=== PATIENT | female | born 1935 | race Caucasian/White ===

== ENCOUNTER 2016-12-06 07:27 | Inpatient (IN) | payer MEDICARE, OTHER ==
[2016-12-06] MEDS ORDERED: NS 0.9% 1000 ML* 1,000 ML IV SCH ×2 (07:45→11:42)
--- NOTE | 2016-12-06 08:04 | RAD ---
INDICATION: Altered mental status COMPARISON: Chest x-ray December 11, 2013 TECHNIQUE: An AP portable view obtained at 0740 hours is submitted. FINDINGS: Bones/Soft Tissues: There are no acute bony findings. Cardiomediastinal: The cardiomediastinal silhouette is normal. Lungs: There are no infiltrates. Pleura: There are no pleural effusions. Other: None IMPRESSION: NO ACTIVE DISEASE.
[2016-12-06 08:16] LABS: Hematocrit 39 % (35-47); Hemoglobin 12.7 g/dl (12.0-16.0); Mean Corpuscular HGB Conc 33 g/dl (31-36); Mean Corpuscular Hemoglobin 29 pg (27-31); Mean Corpuscular Volume 90 fL (80-97); Mean Platelet Volume 9 um3 (7.4-10.4); Red Blood Count 4.33 10^6/ul (4.0-5.4); Red Cell Distribution Width 16 % (10.5-15); White Blood Count 6.6 10^3/ul (3.5-10.8)
[2016-12-06 08:30] LABS: Albumin 3.7 g/dL (3.2-5.2); BUN/Creatinine Ratio 24.1 (8-20); C Reactive Protein 2.48 mg/L (< 5.00); Calcium 9.4 mg/dL (8.6-10.3); EGFR African American 85.3 (>60); EGFR Non-African American 66.3 (>60); Globulin 2.9 g/dL (2-4); Magnesium 1.9 mg/dL (1.9-2.7); Potassium 4.2 mmol/L (3.5-5.0); Total Bilirubin 0.6 mg/dL (0.2-1.0); Total Protein 6.6 g/dL (6.4-8.9); Troponin I 0.01 ng/mL (<0.04)
[2016-12-06 09:02] LABS: TSH (Thyroid Stimulating Horm) 1.71 mcIU/mL (0.34-5.60)
--- NOTE | 2016-12-06 09:22 | RAD ---
INDICATION: Left-sided weakness. Possible TIA COMPARISON: None TECHNIQUE: Noncontrast axial source images were acquired from the skull base to the vertex. FINDINGS: Ventricles/sulci: There is cortical atrophy with compensatory dilatation of the CSF spaces. Brain parenchyma: There is periventricular and subcortical white matter change compatible with chronic ischemia. Intracranial hemorrhage:None. Extra-axial spaces: There are no abnormal extra axial fluid collections or evidence of extra-axial mass. Calvarium: There is no calvarial fracture or other calvarial abnormality. Scalp: There is no evidence of scalp or extracalvarial soft tissue abnormality. Paranasal sinuses/mastoid: The paranasal sinuses and mastoid air cells are clear. Other: None. IMPRESSION: CORTICAL ATROPHY WITH CHRONIC MICROVASCULAR ISCHEMIC CHANGES. NO ACUTE FINDINGS.
[2016-12-06 09:30] LABS: Urine Bacteria 1+ (Absent); Urine Bilirubin Negative (Negative); Urine Glucose Negative (Negative); Urine Nitrite Positive (Negative)
[2016-12-06] MEDS ORDERED: Levofloxacin 500 MG IVPREMIX(* 500 MG/100 ML BAG IVPB ONE (10:17)
--- NOTE | 2016-12-06 10:19 | ED ---
Maxime Pichardo Alfonso, scribed for Maurilio Jones MD on 12/06/16 at 0755 . Altered Mental Status - HPI Summary HPI Summary: LEVEL 5 CAVEAT DUE TO PT NON-VERBAL STATUS This patient is a 81 year old female BIBA to [facility] for left-sided weakness since yesterday. Per medical record, her daughter stated the pt was not talking at dinner last night or at breakfast this morning. She rates the pain 0/10 in severity. Sx aggravated and alleviated by nothing. She nods her head no when asked if in pain. Pt has no medical history to mention secondary to non-verbal status. - History Of Current Complaint Chief Complaint: EDAltMentalStatus Stated Complaint: POSS TIA Time Seen by Provider: 12/06/16 07:33 Hx Obtained From: Patient, Medical Records Hx From Patient Unobtainable Due To: Other - Non-verbal status Onset/Duration: Still Present - since yesterday Timing: Constant Severity Initially: Mild Severity Currently: Mild Aggravating Factor(s): Nothing Alleviating Factor(s): Nothing - Allergies/Home Medications Allergies/Adverse Reactions: Allergies Allergy/AdvReac Type Severity Reaction Status Date / Time Amoxicillin Allergy UNKOWN Verified 12/06/16 08:20 Cephalexin [From Keflex] Allergy UNKOWN Verified 12/06/16 10:03 Erythromycin Allergy UNKOWN Verified 12/06/16 10:03 PMH/Surg Hx/FS Hx/Imm Hx Endocrine/Hematology History: Reports: Hx Thyroid Disease Cardiovascular History: Reports: Hx Hypercholesterolemia, Hx Hypertension History: Comment Only: Other Problems/Disorders - GERD Musculoskeletal History: Reports: Other Musculoskeletal History - multiple epiphyseal dysplasia Sensory History: Reports: Hx Contacts or Glasses Opthamlomology History: Reports: Hx Contacts or Glasses Neurological History: Reports: Other Neuro Impairments/Disorders - essential tremors Psychiatric History: Reports: Hx Depression - Surgical History Surgery Procedure, Year, and Place: bilat total hip and knee replacement, multilpe epiphyseal dysplasia Infectious Disease History: No Infectious Disease History: Denies: Traveled Outside the [place] in Last 30 Days - Family History Known Family History: Positive: Unknown - LEVEL 5 CAVEAT DUE TO PT NON-VERBAL STATUS - Social History Alcohol Use: None Substance Use Type: Reports: None Smoking Status (MU): Former Smoker Type: Cigarettes Have You Smoked in the Last Year: No Review of Systems Negative: Fever Positive: Arthralgia - Negative "pain" Positive: Weakness - Left-sided All Other Systems Reviewed And Are Negative: No Physical Exam Triage Information Reviewed: Yes Vital Signs On Initial Exam: Initial Vitals Temp Pulse Resp BP Pulse Ox 98.3 F 74 20 142/63 96 12/06/16 07:33 12/06/16 07:33 12/06/16 07:33 12/06/16 07:33 12/06/16 07:33 Vital Signs Reviewed: Yes Completion Of Physical Exam Limited Due To: Level 5 Appearance: Positive: Well-Appearing, No Pain Distress Skin: Positive: Warm, Skin Color Reflects Adequate Perfusion, Dry Head/Face: Positive: Normal Head/Face Inspection Eyes: Positive: EOMI, JEFFREY ENT: Positive: Normal ENT inspection Neck: Positive: Supple, Nontender Respiratory/Lung Sounds: Positive: Clear to Auscultation, Breath Sounds Present Cardiovascular: Positive: RRR Abdomen Description: Positive: Nontender, Soft Bowel Sounds: Positive: Present Musculoskeletal: Positive: Other - Contracted bilateral LE. LUE held flexed. RUE extended. Neurological: Positive: Other - Pt non-verbal and responds to voice Psychiatric: Positive: Affect/Mood Appropriate - [place] Coma Scale Best Eye Response: 4 - Spontaneous Best Motor Response: 1 - None Best Verbal Response: 5 - Oriented Coma Scale Total: 10 Diagnostics - Vital Signs Vital Signs Temp Pulse Resp BP Pulse Ox 12/06/16 07:33 98.3 F 74 20 142/63 96 - Laboratory Lab Results: Lab Results 12/06/16 12/06/16 12/06/16 Range/Units 08:00 08:00 08:00 WBC 6.6 (3.5-10.8) 10^3/ul RBC 4.33 (4.0-5.4) 10^6/ul Hgb 12.7 (12.0-16.0) g/dl Hct 39 (35-47) % MCV 90 (80-97) fL MCH 29 (27-31) pg MCHC 33 (31-36) g/dl RDW 16 H (10.5-15) % Plt Count 283 (150-450) 10^3/ul MPV 9 (7.4-10.4) um3 Neut % (Auto) 59.7 (38-83) % Lymph % (Auto) 22.4 L (25-47) % [place] % (Auto) 12.4 H (1-9) % Eos % (Auto) 4.4 (0-6) % Baso % (Auto) 1.1 (0-2) % Absolute Neuts (auto) 4.0 (1.5-7.7) 10^3/ul Absolute Lymphs (auto) 1.5 (1.0-4.8) 10^3/ul Absolute Monos (auto) 0.8 (0-0.8) 10^3/ul Absolute Eos (auto) 0.3 (0-0.6) 10^3/ul Absolute Basos (auto) 0.1 (0-0.2) 10^3/ul Absolute Nucleated RBC 0 10^3/ul Nucleated RBC % 0 INR (Anticoag Therapy) 1.00 (0.89-1.11) APTT 34.0 (26.0-36.3) seconds Sodium 139 (133-145) mmol/L Potassium 4.2 (3.5-5.0) mmol/L Chloride 109 (101-111) mmol/L Carbon Dioxide 26 (22-32) mmol/L Anion Gap 4 (2-11) mmol/L BUN 20 (6-24) mg/dL Creatinine 0.83 (0.51-0.95) mg/dL Est GFR ( Amer) 85.3 (>60) Est GFR (Non-Af Amer) 66.3 (>60) BUN/Creatinine Ratio 24.1 H (8-20) Glucose 97 (70-100) mg/dL Lactic Acid (0.5-2.0) mmol/L Calcium 9.4 (8.6-10.3) mg/dL Magnesium 1.9 (1.9-2.7) mg/dL Total Bilirubin 0.60 (0.2-1.0) mg/dL AST 13 (13-39) U/L ALT 9 (7-52) U/L Alkaline Phosphatase 85 (34-104) U/L Troponin I 0.01 (<0.04) ng/mL C-Reactive Protein 2.48 (< 5.00) mg/L Total Protein 6.6 (6.4-8.9) g/dL Albumin 3.7 (3.2-5.2) g/dL Globulin 2.9 (2-4) g/dL Albumin/Globulin Ratio 1.3 (1-3) Lipase 30 (11.0-82.0) U/L TSH 1.71 (0.34-5.60) mcIU/mL Urine Color Urine Appearance Urine pH (5-9) Ur Specific [place] (1.010-1.030) Urine Protein (Negative) Urine Ketones (Negative) Urine Blood (Negative) Urine Nitrate (Negative) Urine Bilirubin (Negative) Urine Urobilinogen (Negative) Ur Leukocyte Esterase (Negative) Urine WBC (Auto) (Absent) Urine RBC (Auto) (Absent) Ur Squamous Epith Cells (Absent) Urine Bacteria (Absent) Hyaline Casts (Absent) Urine Glucose (Negative) 12/06/16 12/06/16 Range/Units 08:00 09:15 WBC (3.5-10.8) 10^3/ul RBC (4.0-5.4) 10^6/ul Hgb (12.0-16.0) g/dl Hct (35-47) % MCV (80-97) fL MCH (27-31) pg MCHC (31-36) g/dl RDW (10.5-15) % Plt Count (150-450) 10^3/ul MPV (7.4-10.4) um3 Neut % (Auto) (38-83) % Lymph % (Auto) (25-47) % [place] % (Auto) (1-9) % Eos % (Auto) (0-6) % Baso % (Auto) (0-2) % Absolute Neuts (auto) (1.5-7.7) 10^3/ul Absolute Lymphs (auto) (1.0-4.8) 10^3/ul Absolute Monos (auto) (0-0.8) 10^3/ul Absolute Eos (auto) (0-0.6) 10^3/ul Absolute Basos (auto) (0-0.2) 10^3/ul Absolute Nucleated RBC 10^3/ul Nucleated RBC % INR (Anticoag Therapy) (0.89-1.11) APTT (26.0-36.3) seconds Sodium (133-145) mmol/L Potassium (3.5-5.0) mmol/L Chloride (101-111) mmol/L Carbon Dioxide (22-32) mmol/L Anion Gap (2-11) mmol/L BUN (6-24) mg/dL Creatinine (0.51-0.95) mg/dL Est GFR ( Amer) (>60) Est GFR (Non-Af Amer) (>60) BUN/Creatinine Ratio (8-20) Glucose (70-100) mg/dL Lactic Acid 0.9 (0.5-2.0) mmol/L Calcium (8.6-10.3) mg/dL Magnesium (1.9-2.7) mg/dL Total Bilirubin (0.2-1.0) mg/dL AST (13-39) U/L ALT (7-52) U/L Alkaline Phosphatase (34-104) U/L Troponin I (<0.04) ng/mL C-Reactive Protein (< 5.00) mg/L Total Protein (6.4-8.9) g/dL Albumin (3.2-5.2) g/dL Globulin (2-4) g/dL Albumin/Globulin Ratio (1-3) Lipase (11.0-82.0) U/L TSH (0.34-5.60) mcIU/mL Urine Color Yellow Urine Appearance Cloudy Urine pH 5.0 (5-9) Ur Specific [place] 1.018 (1.010-1.030) Urine Protein Negative (Negative) Urine Ketones Negative (Negative) Urine Blood 1+ H (Negative) Urine Nitrate Positive H (Negative) Urine Bilirubin Negative (Negative) Urine Urobilinogen Negative (Negative) Ur Leukocyte Esterase Trace H (Negative) Urine WBC (Auto) 1+(6-10/hpf) H (Absent) Urine RBC (Auto) 3+(>10/hpf) H (Absent) Ur Squamous Epith Cells Present H (Absent) Urine Bacteria 1+ H (Absent) Hyaline Casts Present H (Absent) Urine Glucose Negative (Negative) Result Diagrams: 12/06/16 08:00 12/06/16 08:00 Lab Statement: Any lab studies that have been ordered have been reviewed, and results considered in the medical decision making process. - Radiology CXR Radiology Interpretation Completed By: Radiologist - No Active Disease - CT Brain CT CT Interpretation Completed By: Radiologist - CORTICAL ATROPHY WITH CHRONIC MICROVASCULAR ISCHEMIC CHANGES. NO ACUTE FINDINGS. Altered Mental Statu Course/Dx - Course Course Of Treatment: NO CRITICAL CARE TIME. DISCUSSED RESULTS WITH PATIENT/ FAMILY. ADMIT HOSPITALIST STABLE. - Diagnoses Discharge Diagnoses: Altered mental state, UTI (urinary tract infection) - Provider Notifications Discussed Care Of Patient With: Tabatha Marquez Time Discussed With Above Provider: 10:12 Instructed by Provider To: Other - Consulted Dr. Marquez (hospitalist) who agrees to admit. Discharge - Discharge Plan Condition: Stable Disposition: ADMITTED TO [facility] Referrals: No Primary Care Phys,NOPCP [Primary Care Provider] - The documentation as recorded by the Maxime hobbs Alfonso accurately reflects the service I personally performed and the decisions made by me, Maurilio Jones MD.
[2016-12-06] MEDS ORDERED: Ondansetron INJ* 2 MG/ML VIAL IV PRN (11:44)
[2016-12-06] MEDS ORDERED: Acetaminophen TAB* 325 MG PO PRN (11:44)
[2016-12-06] MEDS ORDERED: Bisacodyl SUPP* 10 MG SUPP PR PRN (11:45)
[2016-12-06] MEDS: Enoxaparin(*) 40 MG/0.4 ML SYR SUBCUT SCH (12:22)
[2016-12-06] MEDS: cefTRIAXone VIAL(*) 1,000 MG in NS 0.9% 50 ML* 50 ML IVPB SCH (12:22)
--- NOTE | 2016-12-06 13:19 | HP ---
HISTORY AND PHYSICAL:* ADDENDUM: Ms. Coleman is a 81-year-old female with history of dementia, bilateral lower extremity contractions who was a resident of [facility]. Apparently for the past 4 days or so the patient had been more lethargic and there was a questions one-sided facial droop and one-sided weakness that resolved by the time of evaluation in emergency room. The patient is going to be observed on telemonitored bed. Her initial CT showed no stroke. Once again , currently her evaluation shows no focal motor weakness. She does appear to have urinary tract infection and was dehydrated. For further details of the patient's admission and plan, please see history and physical dictated by Yaneli Stanley on 12/06/16, with which I agree. [id number]/[facility] #: [id number] TIEN
--- NOTE | 2016-12-06 14:09 | HP ---
ATTENDING PHYSICIAN'S ADDENDUM NOW INCLUDED ON THIS REPORT CC: Dr. Gladys Cerrato* MEDICINE HISTORY AND PHYSICAL: DATE OF ADMISSION: 12/06/16 PROVIDER: Goldy Argueta NP ATTENDING PHYSICIAN: Dr. Tabatha Marquez * (as dictated by Goldy Argueta NP). PRIMARY CARE PROVIDER: Dr. Gladys Cerrato. CHIEF COMPLAINT: Right facial droop and aphasia. HISTORY OF PRESENT ILLNESS: Most of the history was provided by the patient's daughter and healthcare proxy, Nakia Coleman. Ms. Chelle Coleman is a 81-year-old patient who was brought in by ambulance to the ER for further evaluation with concern for altered mental status and left- sided weakness that was first noted yesterday. Her daughter states that she saw her mother on Sunday evening and feels that she may have been at her baseline, but this is difficult for her to determine because the patient had some disorientation from being woken up from sleep. She did not see her mother on Sunday, but then saw her yesterday and noted that she was not talking as she usually does and was not able to form words. She also questionably noticed some facial droop, although on the right side and states that the nursing staff at [facility] also noted that this was present this morning as well. Nakia Nichols, the patient's daughter, reports that the patient does have significant dementia. She reports that her mother has had a steady decline over the past 3 years, but states that this is different from her new baseline. At baseline, the patient can carry on a conversation and can communicate, but she notes that she has had a decline in her ability to think abstractly. She is concerned because the patient in the past few days has been notably more blank without facial expression and has been babbling nonsensical words and not able to speak. She does note here that the patient has started to look more alert after receiving fluids and is offering some words now and appears to be more expressive, but still has concern for some slurring speech. The patient is offering no specific complaints other than her feet hurting, but at baseline , she does have some chronic pain. Here in the ER, the patient did have a CT of the brain, which showed no acute findings and some cortical atrophy with chronic microvascular ischemic changes. The patient's UA was significant for positive nitrites, leukocyte esterase, and bacteria. PAST MEDICAL HISTORY: 1. Atrial fibrillation, the patient is only on aspirin. 2. Hypothyroidism. 3. Dementia. 4. Depression. 5. Chronic constipation. 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 7. Osteoarthritis. 8. Hyperlipidemia. HOME MEDICATIONS: 1. Dulcolax suppository, 1 suppository daily p.r.n. 2. Omeprazole 20 mg daily. 3. Levothyroxine 75 [address]cg daily[address] 4. Dul[address] 60 mg daily. 5. Bupropion 150 mg b.i.d. 6. Acetaminophen 650 mg q.4 hours p.r.n. 7. Tramadol 50 mg b.i.d. p.r.n. 8. MiraLAX 17 g b.i.d. 9. Gabapentin 400 mg at bedtime. 10. Vitamin D 50,000 units monthly. 11. Diltiazem CD 180 mg daily. 12. Aspirin 81 mg daily. ALLERGIES: From chart are AMOXICILLIN, CEPHALEXIN, and ERYTHROMYCIN. I did ask the daughter about these medications and she states that she has no recollection of her mother receiving these medications and recent history and no known history of anaphylaxis in her mother. FAMILY HISTORY: Reviewed and noncontributory. SOCIAL HISTORY: The patient resides at [place]. She does not smoke, drink, or use illicit drugs, and no known history of this. The patient at baseline is wheelchair bound and needs to be pushed in the wheelchair. She is not able to propel the wheelchair independently. Her daughter, Nakia Coleman, is her healthcare proxy and power of ip technology transactions attorney. REVIEW OF SYSTEMS: As per HPI. All those not mentioned are negative. PHYSICAL EXAMINATION GENERAL: Ms. Coleman is a pleasantly confused elderly female, who is lying in ED stretcher, in no acute distress. She is tracking with the movement. She does offer some facial expressions and minimal verbal interaction. VITAL SIGNS: Temperature 98.3, heart rate 78, respiratory rate 16, blood pressure 144/78, and O2 saturation is 96% on room air. HEENT: Head is atraumatic, normocephalic. Face is symmetrical. I do not appreciate any facial drooping at this time. Pupils are equal, round, and reactive to light. Extraocular movements are intact. Oral mucosa appears tacky and dry. NECK: Supple. No lymphadenopathy appreciated. The patient appears to have full range of motion to the neck. RESPIRATORY: Lungs are clear to auscultation. CARDIAC: Variable S1 and S2. Heart sounds, irregular rate and rhythm. No murmurs, rubs, or gallops. There is no peripheral edema and distal pulses are 1 +. ABDOMEN: Soft, nontender, nondistended. Bowel sounds are present times all 4 quadrants. 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 NEUROLOGIC: The patient offers minimal verbal responses, but does follow commands. The patient has 3/5 strength in the left hand and 4/5 strength in the right hand. Difficult to determine orientation. The patient does have significant dementia and appears to be oriented only to self. SKIN: Limited assessment, but appears grossly intact. DIAGNOSTIC STUDIES/LAB DATA: CBC: WBC is 6.6, hemoglobin is 12.7, hematocrit 29, platelet 283. INR 1. CMP: Sodium 139, potassium 4.2, chloride 109, carbon dioxide 26, BUN 20, creatinine 0.83, glucose 97, lactic acid 0.9, calcium 9.4, magnesium 1.9. Total bilirubin 0.6, AST 13, ALT 9, alk phos 85. Troponin 0.01. CRP 2.48. Albumin 3.7. TSH 1.71. Urinalysis shows 1+ blood, positive nitrites, trace leukocyte esterase, 1+ wbc's, 1+ bacteria. CT of the brain shows cortical atrophy with chronic microvascular ischemic changes. No acute findings. Chest x-ray shows no active disease. EKG shows atrial fibrillation. There are T-wave inversions to leads II, III, aVF that are present in [address] elevations or ischemic changes noted. Old medical records were reviewed. ASSESSMENT AND PLAN: Ms. Coleman is a 81-year-old female, who presents today with altered mental status and suspected urinary tract infection. We will admit her under observation to the telemetry floor. Plan is as follows: 1. Altered mental status. This may be secondary to the urinary tract infection. However, given the reports of facial droop and new weakness, this may also represent a transient ischemic attack, perhaps subacute cerebrovascular accident, although this was not seen on a CT scan. Family is very involved in the patient's care and understand that the patient may have had a stroke based on her risk factors of being bedbound and having atrial fibrillation with no chronic anticoagulation. They would like an MRI to rule this out, but understand that the patient's quality of life has been steadily declining. They are optimistic currently that she has started to improve here following IV fluids and antibiotic administration and are hopeful to get her back to [facility]. We will monitor her on telemetry, continue with neurological checks, and obtain an MRI of the brain. If it is positive for a cerebrovascular accident, we will complete the workup and order a CT of the head and neck and echocardiogram. However, at this time, we will start with an MRI of the brain and proceed from there. The patient's family desires a minimally invasive workup, if possible. We will also continue the patient on antibiotics for her urinary tract infection, which I suspect is primarily driving her altered mental status. 2. Urinary tract infection. The patient was started on Levaquin here in the ER. I did check with the family regarding any history of anaphylaxis or severe reaction to the medications on her allergy list and they are unsure as to why they are there, stating that they do not know of any previous medical history of her having reactions to amoxicillin or Keflex. We will try the patient on ceftriaxone here and monitor her closely and await her urine cultures. 3. Hypothyroidism. The patient's TSH is 1.71. Continue current dose of levothyroxine. 4. History of chronic pain. Continue home tramadol, duloxetine, and Neurontin. 5. History of atrial fibrillation. Continue diltiazem and aspirin. The patient is currently rate controlled. 6. History of dementia. Continue supportive care. 7. History of chronic constipation. Continue home bowel regimen. 8. FEN. The patient is ordered a heart healthy diet. 9. DVT prophylaxis. Subcu Lovenox. 10. Code status. The patient is a DNR, has a MOLST on the chart. TIME SPENT: Time spent on this admission was approximately 60 minutes, more than half that time was spent [id number] with the patient obtaining history and physical, performing the physical examination, and reviewing the plan of care. Plan of care was also reviewed with my attending, Dr. Marquez, who is in agreement. GOLDY ARGUETA NP ADDENDUM: Ms. Coleman is a 81-year-old female with history of dementia, bilateral lower extremity contractions who was a resident of [facility]. Apparently for the past 4 days or so the patient had been more lethargic and there was a questions one-sided facial droop and one-sided weakness that resolved by the time of evaluation in emergency room. The patient is going to be observed on telemonitored bed. Her initial CT showed no stroke. Once again, currently her evaluation shows no focal motor weakness. She does appear to have urinary tract infection and was dehydrated. For further details of the patient's admission and plan, please see history and physical dictated by Goldy Argueta on 12/06/16, with which I agree. TABATHA MARQUEZ MD [id number]/[facility] #: [id number] #: [id number] TIEN
[2016-12-06] MEDS: traMADol TAB* 50 MG PO PRN (14:51)
--- NOTE | 2016-12-06 16:58 | RAD ---
Indication: Right facial droop. Image Sequences: Sagittal and axial T1, axial T2, FLAIR, diffusion and susceptibility weighted images of the brain were obtained. There is no prior study available for comparison. Ventricular structures are midline. No midline shift is noted. There is central and cortical atrophy noted. There is no evidence of restriction of diffusion on diffusion-weighted images. FLAIR images demonstrate periventricular signal abnormalities consistent with small vessel ischemic changes. Evidence of prominent Virchow-Jerome spaces are noted. There is fluid in the right mastoid air cells. Findings are consistent with right-sided mastoid sinusitis. Left mastoid air cells are unremarkable. IMPRESSION: 1. No restriction of diffusion is noted with atrophy appropriate for age. 2. Chronic ischemic white matter change. 3. Mastoid sinusitis right maxillary sinus.
[2016-12-06] MEDS: Polyethylene Glycol 3350* 17 GM PACKET PO SCH (20:42)
[2016-12-06] MEDS: buPROPion SR TAB.SR* 150 MG PO SCH (20:42)
[2016-12-06] MEDS: Gabapentin CAP(*) 400 MG PO SCH (20:42)
[2016-12-07] MEDS: Levothyroxine TAB* 75 MCG TAB PO SCH (05:25)
[2016-12-07 06:18] LABS: Hematocrit 39 % (35-47); Hemoglobin 12.4 g/dl (12.0-16.0); Mean Corpuscular HGB Conc 32 g/dl (31-36); Mean Corpuscular Hemoglobin 29 pg (27-31); Mean Corpuscular Volume 91 fL (80-97); Mean Platelet Volume 8 um3 (7.4-10.4); Red Blood Count 4.23 10^6/ul (4.0-5.4); Red Cell Distribution Width 16 % (10.5-15); White Blood Count 6.5 10^3/ul (3.5-10.8)
[2016-12-07 06:38] LABS: BUN/Creatinine Ratio 19.6 (8-20); EGFR African American 75.7 (>60); EGFR Non-African American 58.9 (>60)
[2016-12-07] MEDS: Omeprazole CAP* 20 MG PO SCH (07:53)
[2016-12-07] MEDS: DULoxetine DR CAP* 30 MG CAP.DR PO SCH (08:33)
[2016-12-07] MEDS: Aspirin EC Low Dose* 81 MG TAB.EC PO SCH (08:33)
[2016-12-07] MEDS: Polyethylene Glycol 3350* 17 GM PACKET PO SCH ×2 (08:33→21:17)
[2016-12-07] MEDS: buPROPion SR TAB.SR* 150 MG PO SCH ×2 (08:33→21:15)
[2016-12-07] MEDS: Diltiazem CD CAP* 180 MG PO SCH (08:33)
--- NOTE | 2016-12-07 10:50 | PN ---
Subjective Date of Service: 12/07/16 Interval History: HOSPITALIST PROGRESS NOTE Patient seen and examined at bedside. She is lethargic, arousable by voice. Denies pain, dysuria, but goes back to sleep after answering questions. Family History: Unchanged from Admission Social History: Unchanged from Admission Past Medical History: Unchanged from Admission Objective Active Medications: Acetaminophen (Tylenol Tab*) 650 mg PO Q4H PRN PRN Reason: FEVER/PAIN Last Admin: 12/06/16 17:41 Dose: 650 mg Aspirin (Aspirin Ec Low Dose*) 81 mg PO DAILY [facility] Last Admin: 12/07/16 08:33 Dose: 81 mg Bisacodyl (Dulcolax Supp*) 10 mg GA DAILY PRN PRN Reason: CONSTIPATION Bupropion HCl (Wellbutrin Sr Tab*) 150 mg PO BID [facility] Last Admin: 12/07/16 08:33 Dose: 150 mg Diltiazem HCl (Cardizem Cd Cap*) 180 mg PO DAILY [facility] Last Admin: 12/07/16 08:33 Dose: 180 mg Duloxetine HCl (Cymbalta Cap*) 60 mg PO DAILY [facility] Last Admin: 12/07/16 08:33 Dose: 60 mg Enoxaparin Sodium (Lovenox(*)) 40 mg SUBCUT Q24H [facility] Last Admin: 12/06/16 12:22 Dose: 40 mg Gabapentin (Neurontin Cap(*)) 400 mg PO BEDTIME [facility] Last Admin: 12/06/16 20:42 Dose: 400 mg Ceftriaxone Sodium 1,000 mg/ (Sodium Chloride) 50 mls @ 200 mls/hr IVPB Q24H [facility] Last Admin: 12/06/16 12:22 Dose: 200 mls/hr Levothyroxine Sodium (Synthroid Tab*) 75 mcg PO DAILY@0600 [facility] Last Admin: 12/07/16 05:25 Dose: 75 mcg Omeprazole (Prilosec Cap*) 20 mg PO 0730 [facility] Last Admin: 12/07/16 07:53 Dose: 20 mg Ondansetron HCl (Zofran Inj*) 4 mg IV Q6H PRN PRN Reason: NAUSEA/VOMITING Polyethylene Glycol/Electrolytes (Miralax*) 17 gm PO BID [facility] Last Admin: 12/07/16 08:33 Dose: 17 gm Tramadol HCl (Ultram*) 50 mg PO BID PRN PRN Reason: PAIN - MILD TO MODERATE Last Admin: 12/06/16 14:51 Dose: 50 mg Vital Signs 12/06/16 12/06/16 12/07/16 22:42 23:54 03:54 Temperature 98.7 F 97.9 F Pulse Rate 76 84 Respiratory 18 22 22 Rate Blood Pressure 139/54 151/58 (mmHg) O2 Sat by Pulse 96 99 Oximetry Oxygen Devices in Use Now: None Appearance: Elderly lady dying in bed in NAD. Eyes: No Scleral Icterus Ears/Nose/Mouth/Throat: Mucous Membranes Moist Neck: Trachea Midline Respiratory: Symmetrical Chest Expansion and Respiratory Effort, Clear to Auscultation Cardiovascular: - - Normal S1 and S2, irregularly irregular Abdominal: NL Sounds; No Tenderness; No Distention Neurological: - - Lethargic, oriented to self only, HA[place], face is symmetric Lines/Tubes/Other Access: Clean, Dry and Intact Peripheral IV Result Diagrams: 12/07/16 05:58 12/07/16 05:58 Assess/Plan/Problems-Billing Assessment: Mrs. Coleman is a 81yo F with PMH of Afib, hypothyroidism, dementia, HLD, depression, who presented to ED with altered mental status, found to have an UTI. - Patient Problems (1) E. coli UTI Comment: - Her altered mental status and weakness are associated with UTI. - Abnormal UA present on admission and urine culture is growing E. coli. - Continue Ceftriaxone and follow sensitivities. - Check renal US. - MRI brain was negative for CVA. - D/c Telemetry. (2) Atrial fibrillation Comment: - Rate is controlled. - D/c telemetry. - Continue Aspirin. (3) Hypothyroidism Comment: - Continue levothyroxine. (4) DVT prophylaxis Comment: - Lovenox. (5) DNR (do not resuscitate) Status and Disposition: Change to inpatient.
[2016-12-07] MEDS: Enoxaparin(*) 40 MG/0.4 ML SYR SUBCUT SCH (12:54)
[2016-12-07] MEDS: cefTRIAXone VIAL(*) 1,000 MG in NS 0.9% 50 ML* 50 ML IVPB SCH (12:54)
--- NOTE | 2016-12-07 16:22 | RAD ---
Indication: Urinary tract infection Real-time sonography of the kidneys was performed. The right kidney is not visualized due to overlying gas. Distended gallbladder with calculi are noted. The left kidney measures 9.2 x 4.8 x 4.4 cm with a 3.1 cm cyst in the upper pole of left kidney. A post void bladder could not BE obtained due to incontinence. The bladder measures 59 mL with lateral wall measuring up to 5 mm. Bilateral ureteral jets are noted. IMPRESSION: Right kidney not visualized. Incontinent bladder with a bladder volume of 59 mL. Bilateral ureteral jets are noted.
[2016-12-07] MEDS: Gabapentin CAP(*) 400 MG PO SCH (21:15)
[2016-12-08] MEDS: Levothyroxine TAB* 75 MCG TAB PO SCH (05:16)
[2016-12-08] MEDS: Diltiazem CD CAP* 180 MG PO SCH (09:19)
[2016-12-08] MEDS: DULoxetine DR CAP* 30 MG CAP.DR PO SCH (09:19)
[2016-12-08] MEDS: buPROPion SR TAB.SR* 150 MG PO SCH (09:19)
[2016-12-08] MEDS: Omeprazole CAP* 20 MG PO SCH (09:19)
[2016-12-08] MEDS: Aspirin EC Low Dose* 81 MG TAB.EC PO SCH (09:19)
[2016-12-08] MEDS: Polyethylene Glycol 3350* 17 GM PACKET PO SCH (10:32)
[2016-12-08 10:35] VITALS: BP 152/72
[2016-12-08] MEDS: traMADol TAB* 50 MG PO PRN (11:29)
[2016-12-08] MEDS: Enoxaparin(*) 40 MG/0.4 ML SYR SUBCUT SCH (11:32)
[2016-12-08] MEDS: cefTRIAXone VIAL(*) 1,000 MG in NS 0.9% 50 ML* 50 ML IVPB SCH (11:32)
--- NOTE | 2016-12-08 16:23 | CONS ---
CONSULTATION REPORT: DATE OF CONSULT: 12/08/16 ATTENDING PHYSICIAN: Karine Lim MD REQUESTING PHYSICIAN: Luz Elena Boateng MD HISTORY OF PRESENT ILLNESS: Chelle Coleman is a 81-year-old woman with history of atrial fibrillation, hyperlipidemia, dementia, and multiple epiphyseal dysplasia, now admitted with decreased verbal output, question of facial weakness, and decreased interaction. Chelle Coleman lives at [facility]. Her daughter, Kaya Coleman was at bedside, who provided most of the history. She indicated that she and her had visited her mother on November 24, and thought that she was normal at that time. They visited her on the 01 of December , and there was not any clear changes, but she was just waking up, so they are not 100% sure. On December 04, she was noted to have decreased affect, decreased engagement, she did not speak at all. On the , she said the word "No." There was a question if there might have been a little bit of facial change and her daughter felt that there was a "crazy look" in her eyes. Soon after she was admitted to hospital. Kaya Coleman describes her mother as living in the moment, wanting to be a part of what is going on around her, being able to speak , albeit hard to find words. She requires a Daniel lift to move. She requires help with ADLs. She usually, however, shows interest in food. She has been diagnosed with dementia and has had particularly rapid decline since moving to [place]. She moved to [place] in 2013 and at that time it became clear that she had dementia. This was soon after she had a hallucination of seeing her mother. At that point, she was very difficult to maintain in her place of independent living due to need for two person transfer. Interestingly, she had changed between care facilities in 2011 because she was not as good in keeping up with things around the house such as disposing of used Depends. Since being in hospital Kaya indicates that she has started to showing some enthusiasm for food yesterday. She was noted to be bubbly and would speak more sometimes saying things that did not make sense. Today, she is a little worse than yesterday. In the notes, there was indication of her staring off with change in speech and this history was confirmed. PAST MEDICAL HISTORY: Chelle Coleman's past medical history includes, hyperlipidemia, atrial fibrillation for which she was on Coumadin, originally diagnosed when she was admitted to hospital in December 2013 and then stopped in the interim. There is a history of her being in the emergency room in January 2015, for vomiting and question of upper GI bleed. There were also lab tests following for anemia sent by Dr. Cerrato, who was taking care of her at that time. 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 She has had bilateral hip and bilateral knee replacements with revisions and multiple surgeries for her epiphyseal dysplasia including fusion of the ankle. MEDICATIONS: Includes: 1. Acetaminophen 650 mg p.o. q.6 hours p.r.n. fever, pain. 2. Aspirin 81 mg p.o. daily. 3. Bisacodyl 10 mg per rectum p.r.n. constipation. 4. Wellbutrin SR 150 mg p.o. b.i.d. 5. Ceftriaxone 1000 mg IV q. 24 hours. 6. Cardizem 150 mg p.o. daily. 7. Cymbalta 60 mg p.o. daily. 8. Lovenox 40 mg subcu q. 24 hours. 9. Gabapentin 400 mg p.o. q. p.m. 10. Synthroid 75 mcg p.o. daily. 11. Omeprazole 20 mg p.o. daily. 12. Zofran 4 mg IV q.6 hours p.r.n. nausea, vomiting. 13. Polyethylene glycol 17 g p.o. b.i.d. 14. Ultram 50 mg p.o. b.i.d. p.r.n. pain. ALLERGIES: Include AMOXICILLIN, CEPHALEXIN, and ERYTHROMYCIN, reactions are unknown. FAMILY HISTORY: Includes history of a mother who had dementia, brother with inclusion body myositis, father with inclusion body myositis. Chelle Coleman has had 5 children, many of them have the multiple epiphyseal dysplasia, one has schizophrenia, two are alcoholics. There is a history of depression among them, and one daughter has Patino syndrome. SOCIAL HISTORY: Chelle Coleman lives at [facility]. She does not smoke. She rarely drank alcohol in the past and does not drink now. In the remote past , she used to have a wine with dinner. REVIEW OF SYSTEMS: Patient could not participate in review of systems given her clinical status. Positive findings obtained from daughter were incorporated into the HPI and past medical history. PHYSICAL EXAM: On examination, Ms. Coleman's most recent temperature was 98.4 degrees Fahrenheit, heart rate was 82, respiratory rate 24, saturation 99%, blood pressure 152/72. She had a irregularly irregular rhythm. Her lungs were clear to auscultation. There was no clear peripheral edema. Joint changes were noted, multiple joints. She was awake, alert, would pay attention to what was going on in the room. Her voice was soft. Her fascial expression was diminished. She had full extraocular movements, however, broken saccades in all directions. She blinked to threat bilaterally, but would not count fingers. She was able to tell me that her daughter and son-in-law were in the room and identified them. She was able to tell me that she was in a facility, but could not tell me, which facility or tell me what town she was in. At one point, when she started taking, she first seemed to be answering question asked and then started speaking randomly and then concluded with a very coherent statement, which was clearly a sentence, but vague in content. She had diffuse paratonia grasp reflex, did not participate in strength, sensory coordination exam. Her legs were contracted and bent. Her arm, she moved both independently , but not to request. LABORATORY DATA: Includes CBC with normal white count, hemoglobin, hematocrit, and platelet, and 12.6% monocytes were noted. Her metabolic panel showed an elevated glucose at 107. Her urinalysis has come back with a positive culture showing E. coli. She is currently on ceftriaxone. Her MRI of the brain showed significant atrophy and extensive periventricular small vessel ischemic disease along with right mastoid sinusitis. This film was reviewed directly. Chest x- ray showed no evidence of active disease. See report for details. She also had an abdominal and bladder ultrasound performed, which had impression of an incontinent bladder with volume of 59 mL. IMPRESSION AND PLAN: Chelle Coleman is a 81-year-old woman with a history of atrial fibrillation, hyperlipidemia, dementia, multiple epiphyseal dysplasia now admitted with an episode of decreased verbal output, question of facial weakness, and decreased interaction. She was found to have a urinary tract infection, which very well may be the explanation of the whole clinical decline. Education was given to family. I will suggest checking an EEG given the history of change in speech and staring if she were to have subclinical seizures; treating this may help improve quality of life. She was worked up for stroke on admission and no new stroke was found on the MRI. Differential diagnosis for change in speech and potential facial weakness does include transient ischemic attack. Question of anticoagulation in the setting of atrial fibrillation was brought up. We talked about this at length and we talked about her CHADS-VASc2 score. The potential risk of stroke in the next year, the potential benefit of anticoagulation. The potential risk of anticoagulation with bleed and the options of anticoagulation with novel anticoagulants and with Coumadin and how Coumadin is given and monitoring. History was obtained of possible gastrointestinal bleed from the hospital chart and after much discussion on this topic, we decided not to proceed with anticoagulation, given potential risks may not outweigh potential benefits. In addition, we talked about goals and her daughter, who is healthcare proxy clearly indicated they are trying to do whatever can help preserve quality of life, however, her mother is DNR and they would not want to do any interventions such as surgery. Her mother had clearly stated this before having further dementia. Accordingly, we will not proceed with carotid Doppler as such even if we found narrowing we would not proceed with the surgery. She is currently on aspirin. Education was also provided regarding different types of dementia. The decreased facial expression, tremor at rest noted on examination and early hallucinations raised question of Lewy body disease. We talked about other different dementia medications available. At this point, I would not add any medications in this regard, given advanced dementia that is noted and differential diagnosis. In review of the chart, fasting lipid profile appears not to have been performed during today's visit. In 2016, she had a total cholesterol of 127, her LDL was 76, triglycerides 51, and HDL was 40.8. TIME SPENT: Over 2 hours was spent in patient care with extensive time spent at bedside with family, review of the records, repeat discussions with hospitalists team. I will have further conversation with the patient's daughter , Kaya (cell phone number is [phone]) after her EEG is completed. [id number]/[facility] #: [id number] TIEN
--- NOTE | 2016-12-08 16:23 | DS ---
CC: Dr. Riley Mckay at [facility] DISCHARGE SUMMARY: DATE OF ADMISSION: December 06, 2016 DATE OF DISCHARGE: December 08, 2016 DISCHARGE DIAGNOSES: Altered mental status secondary to E. coli urinary tract infection. SECONDARY DIAGNOSES: 1. Atrial fibrillation. 2. Hypothyroidism. 3. Dementia. 4. Depression. 5. Chronic constipation. 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 7. Osteoarthritis. 8. Hyperlipidemia. MEDICATION LIST: 1. Dulcolax one suppository per rectum daily as needed for constipation. 2. Omeprazole 20 mg p.o. daily. 3. Levothyroxine 75 micrograms p.o. daily. 4. Fluoxetine DR 60 mg p.o. daily. 5. Bupropion SR 150 mg p.o. b.i.d. 6. Acetaminophen 650 mg p.o. every 4 hours p.r.n. pain or fever. 7. Tramadol 50 mg p.o. p.r.n. pain. 8. MiraLax 17 g p.o. b.i.d. 9. Gabapentin 400 mg p.o. at bedtime. 10. Vitamin D 50,000 units p.o. monthly. 11. Diltiazem CD 180 mg p.o. daily. 12. Aspirin 81 mg p.o. daily. NEW MEDICATION: 1. Cephalexin 500 mg p.o. every 8 hours for 10 days. HOSPITAL COURSE: Mrs. Coleman is a 81-year-old lady with a past medical as stated above, that was bro ught into the emergency room due to altered mental status. As per H and P the patient had altered me ntal status and left-sided weakness noted a day prior to admission. Her daughter had seen the patien t on the weekend prior to admission and felt that she was at her baseline. She saw her again on the day of admission and noticed that she was not talking as usual. As per H and P the patient also had a questionable facial droop on the right side as per daughter, but on prison documentation it was on the left side. For more details about presentation she was admitted to the telemetry floor. The initial impression was that her altered mental status was secondary to urinary tract infection, but there was also concern for possible CVA or TIA. The decision was made to pursue an MRI. The patient's urinalysis was indeed abnormal with 1+ WBC, 3+ RBC, positive nitrates and trace LE. Ur ine culture grew E. coli and enterococcus greater than 100,000 colonies, sensitive to cephalosporins . The patient had significant improvement of her mental status in 24 hours. On my physical examination she had no focal neuro deficit. Her face was symmetric. Her speech was normal with no slurring. The patient had a MRI of the brain without contrast that showed no restriction diffusion noted with atrophy appropriate for age. Chronic ischemic white matter change. Fluid in the right mastoid air ce lls. The patient also had an abdomen and bladder ultrasound that was not able to visualize the right kidn ey due to overlying gas. Incontinent bladder with volume of 59 mL. Bilateral ureteral jets were note d. The left kidney showed a 3.1 cm cyst in the upper pole. There was no report of hydronephrosis. My impression is that the patient's altered mental status was likely secondary to the urinary tract infection, but she does have risk factors for CVA considering her atrial fibrillation. For that reas on a consultation was requested with neurology (Dr. Lim). She feels that the patient's symptoms were likely secondary to the UTI making prior deficits associated with her chronic ischemic white ma tter change more prominent. An EEG was performed and it showed no epileptiform discharges. She also discussed the possibility of changing the patient's aspirin to full anticoagulation. The patient was diagnosed with atrial fibrillation in 2013. At that time she was started on anticoagulation with wa rfarin. In 2014 she presented to the emergency room with vomiting and there was concern for coffee g round emesis, and I believe at that point her anticoagulation was discontinued. The patient's PCP us ed to be Dr. Cerrato, but now it is Dr. Mckay. I called Dr. Cerrato's office but it was closed, and I called Dr. Cerrato's cell phone, but apparently she will be out of town until December 19 so I am un able to obtain further information, but I believe at this point that the patient was on Coumadin in 2013 and this was discontinued in 2014 due to a possible GI bleed. After reviewing this information, Dr. Lim still felt that benefit of full anticoagulation would not surpass the risk of GI bleed or even intracranial bleed, so after discussing with family it was felt that full anticoagulation wo uld not be in the patient's best interest. Her recommendation is to continue the low dose aspirin as is being done, especially because we do not think this was an acute neurological event. We think he r altered mental status and other changes were caused by the urinary tract infection. The patient's mental status appears to be close to baseline and she is felt to be medically stable t o return to [facility] today. PHYSICAL EXAMINATION: Vital Signs: Temperature 98.4. Heart rate of 82. Respiratory rate of 16. Oxyg en saturation 99% on room air. Blood pressure 152/72. General: Patient is a pleasantly confused elde rly lady lying in bed in no acute distress. CVS: Normal S1, S2. Irregularly irregular. Chest: Breath sounds clear bilaterally, no added sounds. Abdomen: Soft, nontender, nondistended. There is no CVA tenderness. Extremities: No edema. Neuro: She is alert, oriented to self only. Able to move all 4 ex tremities. DIET: Heart healthy diet. ACTIVITY: As tolerated. DISPOSITION: To [facility]. STATUS WHILE IN THE HOSPITAL: Inpatient. Please keep in mind that this is a summarized version of this patient's hospital stay. If you need m ore information please feel free to call me at or please request the full medical rec ord. Approximately 45 minutes were spent to complete the discharge. [id number]/[facility] #: [id number]
--- NOTE | 2016-12-09 03:30 | EEG ---
ELECTROENCEPHALOGRAPHY: DATE OF STUDY: 12/08/16 - ROOM #404 HISTORY OF PRESENT ILLNESS: Chelle Coleman is a 81-year-old woman with history of dementia, admitted to hospital with change and inability to speak, staring and possible facial asymmetry. DESCRIPTION OF THE RECORD: This was a 16-channel EEG. In the beginning of the record, there was a movement artifact noted anteriorly, posteriorly there was slowing noted in both hemispheres mostly in the theta range at approximately 4 Hz to 5 Hz. Soon after the record began there was increased movement artifact as this settled down there was again slowing that was symmetric in the background rhythm. As the record continued, there was intermittent movement artifact, with leads that could be read again showed slowing. There was no clear asymmetry to the background rhythm. There was no evidence of sharp wave activity. After the muscle artifact was reduced, no change in the background rhythm was noted. IMPRESSION: This was an abnormal EEG. There was diffuse slowing of the background rhythm. The study was limited by movement artifact. Of note, however, there was no evidence of epileptiform activity. [id number]/[facility] #: [id number] [facility]
== END 2016-12-08 16:45 | DRG 690 ==
LOC: ED 07:27 → MEDTELE 10:14 → OBSVTOIN 12-07 11:03 → MED 12-07 18:05
PROVIDERS: ADMIT Internal Medicine; ATTEND Internal Medicine
DX: N39.0 Urinary tract infection, site not specified (principal); I48.91 Unspecified atrial fibrillation; F03.90 Unspecified dementia, unspecified severity, without behavioral disturbance, psychotic disturbance, mood disturbance, and anxiety; B96.20 Unspecified Escherichia coli [E. coli] as the cause of diseases classified elsewhere; E03.9 Hypothyroidism, unspecified; F32.9 Major depressive disorder, single episode, unspecified; K59.09 Other constipation; Z66 Do not resuscitate; M19.90 Unspecified osteoarthritis, unspecified site; E78.5 Hyperlipidemia, unspecified; Z79.82 Long term (current) use of aspirin; Q79.9 Congenital malformation of musculoskeletal system, unspecified; Z79.1 Long term (current) use of non-steroidal anti-inflammatories (NSAID); Z79.899 Other long term (current) drug therapy; Z88.1 Allergy status to other antibiotic agents; Z88.8 Allergy status to other drugs, medicaments and biological substances; Z99.3 Dependence on wheelchair; Z81.1 Family history of alcohol abuse and dependence; Z81.8 Family history of other mental and behavioral disorders
CPT/HCPCS: 36415; 70450; 70551; 71010; 76770; 80048; 80053; 81003; 81015; 83605; 83690; 83735; 84443; 84484; 85025; 85610; 85730; 86140; 87077; 87086; 87186; 93005; A9270-GY; G0378; G8978-GP-CM; G8979-GP-CM; G8980-GP-CM; J0696; J1650; J1956